=== PATIENT | female | born 1960 | race African-American/Black ===

== ENCOUNTER 2016-11-21 16:21 | Outpatient (CLI) | payer OTHER ==
[2016-11-21 16:40] LABS: Bacteria/HPF 1+ HPF (None Seen); Bilirubin Negative (Negative); Blood, Urine Negative (Negative); Clarity Hazy (Clear); Glucose, Urine (Dipstick) Negative (Negative); Leukocyte Negative (Negative); Nitrite Negative (Negative); Protein, Urine (Dipstick) Negative (Neg-Trace); RBC/HPF 0-3 HPF (0-3); Specific Gravity, Urine 1.025 (1.005-1.030); Urobilinogen 0.2 mg/dL (0.2-1.0); WBC/HPF 0-3 HPF (0-3)
== END 2016-11-21 16:22 | disposition home or self-care (01) ==
LOC: MADLABBHPM 16:21
PROVIDERS: ATTEND Family Medicine
DX: R10.9 Unspecified abdominal pain (principal)
CPT/HCPCS: 81001; 87086

== ENCOUNTER 2017-01-09 07:42 | Outpatient (CLI) | payer OTHER ==
[2017-01-09 09:07] LABS: Cardiac Risk 3.4 (Less than 4.5)
== END 2017-01-09 07:43 | disposition home or self-care (01) ==
LOC: MADLABBHPM 07:42
PROVIDERS: ATTEND Family Medicine
DX: E78.2 Mixed hyperlipidemia (principal)
CPT/HCPCS: 36415; 80061

== ENCOUNTER 2017-02-08 16:58 | Outpatient (CLI) | payer OTHER ==
[2017-02-08 17:31] LABS: Hemoglobin A1c 5.3 % (4.0-6.0)
[2017-02-08 17:36] LABS: ALT (SGPT) 13 U/L (8-55); AST (SGOT) 14 U/L (5-34); Albumin 4.4 g/dL (3.5-5.0); Alkaline Phosphatase 75 U/L (40-150); Anion Gap 14 mmol/L (10-20); BUN (Urea Nitrogen) 17 mg/dL (9.8-20.1); Bilirubin, Total Less than 0.3 mg/dL (0.2-1.2); Calc. Creatinine Clearance 0 mL/min (70-130); Calcium 9.5 mg/dL (7.8-10.44); Carbon Dioxide 26 mmol/L (22-29); Chloride 102 mmol/L (98-107); Estimated GFR-MDRD 71; Globulin 3.4 g/dL (2.4-3.5); Glucose 101 mg/dL (70-105); Potassium 4.1 mmol/L (3.5-5.1); Protein, Total 7.8 g/dL (6.0-8.3); Sodium 138 mmol/L (136-145)
[2017-02-08 18:08] LABS: #Basophils 0.1 thou/uL (0.0-0.2); #Eosinphils 0.1 thou/uL (0.0-0.7); #Lymphocytes 3.3 thou/uL (1.20-3.40); #Monocytes 0.5 thou/uL (0.11-0.59); #Neutrophils 4.1 thou/uL (1.40-6.50); %Basophils 0.8 % (0.0-1.0); %Eosinophils 1.2 % (0.0-10.0); %Lymphocytes 40.8 % (21.0-51.0); %Monocytes 6.5 % (0.0-10.0); %Neutrophils 50.8 % (42.0-75.0); Hemoglobin 11.3 g/dL (12.0-16.0); Mean Corpuscular HGB CONC 31.4 g/dL (32.0-36.0); Mean Corpuscular Hemoglobin 27.5 pg (27.0-31.0); Mean Corpuscular Volume 87.5 fl (81.0-99.0); Mean Platelet Volume 10.4 fL (7.4-10.4); Platelet Count 218 thou/uL (130-400); RBC Distribution Width 13.8 % (11.5-14.5); Red Blood Cell (RBC) Count 4.11 mill/uL (4.20-5.40); White Blood Cell (WBC) Count 8.1 thou/uL (4.8-10.8)
== END 2017-02-08 16:59 | disposition home or self-care (01) ==
LOC: MADLAB 16:58
PROVIDERS: ATTEND Family Medicine
DX: R42 Dizziness and giddiness (principal)
CPT/HCPCS: 36415; 80053; 83036; 84443; 85025

== ENCOUNTER 2017-02-28 16:41 | Outpatient (CLI) | payer OTHER ==
--- NOTE | 2017-02-28 19:30 | RAD ---
KUB: 02/28/17 INDICATION: Acute right flank pain. COMPARISON: None. FINDINGS: There is surgical clips within the right upper quadrant of the abdomen. Bowel gas pattern is unobstr ucted. Lung bases are clear. There are small phleboliths suspected within the lower hemipelvis. 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 No a cute osseous abnormality is evident. IMPRESSION: No acute abnormality. POS: ERNA
== END 2017-02-28 16:42 | disposition home or self-care (01) ==
LOC: MADRAD 16:41
PROVIDERS: ATTEND Family Medicine
DX: R10.9 Unspecified abdominal pain (principal)
CPT/HCPCS: 74000

== ENCOUNTER 2020-11-18 13:10 | Outpatient (CLI) | payer OTHER | END 2020-11-18 13:11 | disposition home or self-care (01) | LOC: MADLAB 13:10 → MADRAD 13:11 | PROVIDERS: ATTEND Orthopaedic Surgery | DX: M25.512 Pain in left shoulder (principal) ==

== ENCOUNTER 2021-05-24 13:56 | Outpatient (CLI) | payer OTHER | END 2021-05-24 13:57 | disposition home or self-care (01) | LOC: MADEKG 13:56 | PROVIDERS: ATTEND Family Medicine | DX: R07.9 Chest pain, unspecified (principal) | CPT/HCPCS: 93005; 93010 ==